=== PATIENT | male | born 1970 | race Caucasian/White ===

== ENCOUNTER 2017-09-23 11:58 | Emergency (ER) | payer SELFPAY ==
--- NOTE | 2017-09-23 11:58 | DT_ITS ---
This patient was seen during an EMR downtime September 17, 2017 - September 24, 2017. This patient may have a combination of paper and electronic documentation or all paper documentation. All documentation is viewable within the e-chart portion of [facility] for each patient visit.
--- NOTE | 2017-09-23 12:55 | CT_ITS ---
STUDY: CT CERVICAL SPINE WITHOUT CONTRAST REASON FOR EXAM: Male, 47 years old. Trauma and neck pain RADIATION DOSAGE (If Supplied By Facility): CTDIvol = ( 28.79 ) mGy, DLP = ( 627.32 ) mGycm TECHNIQUE: High resolution transaxial imaging was performed without contrast material. Sagittal and coronal images were reconstructed. Individualized dose optimization techniques were used for this CT. COMPARISON: None FINDINGS: Normal craniovertebral junction. Normal anterior atlantoaxial articulation. Normal odontoid process. There is straightening of the normal cervical lordosis. No acute fracture or listhesis. Moderate multilevel degenerative disc disease without critical central canal stenosis. Mild degenerative retrolisthesis of C3 relation to C2. Multilevel uncovertebral hypertrophy and neuroforaminal narrowing. Normal visualized soft tissue structures. Fibronodular thickening in the lung apices CT/Spine Cervical without Contras IMPRESSION: Multilevel degenerative changes, as described above. Electronically Signed: Yovani Gauthier DO at 13:51 EDT Tel , Service support ,
--- NOTE | 2017-09-23 12:55 | CT_ITS ---
STUDY: CT CHEST WITHOUT CONTRAST REASON FOR EXAM: Male, 47 years old. Trauma with chest injury RADIATION DOSAGE (If Supplied By Facility): CTDIvol = ( 18.08 ) mGy, DLP = ( 636.92 ) mGycm TECHNIQUE: Transaxial imaging was performed without the administration of intravenous contrast material. Individualized dose optimization techniques were used for this CT. COMPARISON: None. FINDINGS: Lungs are mildly hyperinflated with flattened hemidiaphragms compatible COPD. Mild bilateral fibronodular thickening in the lung apices. No definite pneumothorax. There is no demonstrated pleural abnormality. Normal heart and pericardium. Normal mediastinum. Normal hilar regions. Normal unenhanced pulmonary arteries. Normal aorta arch and descending thoracic aorta. Normal osseous structures.No evidence of rib fracture or thoracic spine fracture. There is no demonstrated abnormality of the visualized upper abdomen. CT/Chest without Contrast IMPRESSION: No acute traumatic findings. No evidence of rib fracture. No pneumothorax. Electronically Signed: Yovani Gauthier DO at 13:53 EDT Tel , Service support ,
--- NOTE | 2017-09-23 12:55 | CT_ITS ---
STUDY: CT BRAIN WITHOUT CONTRAST REASON FOR EXAM: Male, 47 years old. Trauma. Confusion. RADIATION DOSAGE (If Supplied By Facility): CTDIvol = ( 44.99 ) mGy, DLP = ( 812.98 ) mGycm TECHNIQUE: Transaxial CT imaging of the brain was performed without administration of intravenous contrast material. Individualized dose optimization techniques were used for this CT. COMPARISON: None. FINDINGS: Normal soft tissue structures. Normal calvarium. Normal size ventricles and extra-axial spaces for the patient's age. Normal white matter tracts of the cerebral hemispheres. Normal basal ganglia and thalami. Normal brainstem. Normal cerebellum. There is no intracranial hemorrhage. There are no findings of an acute ischemic infarction. Normal visualized paranasal sinuses. CT/Brain/Head without Contrast IMPRESSION: Normal unenhanced CT scan of the brain. Electronically Signed: Yovani Gauthier DO at 13:49 EDT Tel , Service support ,
--- NOTE | 2017-09-23 13:15 | EKG12_ITS ---
Test Reason : NEURO Blood Pressure : / mmHG Vent. Rate : 081 BPM Atrial Rate : 081 BPM P-R Int : 152 ms QRS Dur : 106 ms QT Int : 412 ms P-R-T Axes : 070 091 069 degrees QTc Int : 478 ms Normal sinus rhythm Normal ECG Confirmed by GIOVANNY REDMAN, JACQUES ([id number]), movie editor MIGUE SCOTT ([id number]) on 09/26/2017 5:48:30 PM Referred By: Shahid Hernandez Confirmed By:JACQUES BALTAZAR MD
[2017-09-25 07:39] LABS: ALB/GLOB Ratio 1.6 RATIO (0.9-2.4); AST(SGOT) 23 U/L (15-37); Alanine Aminotransfer ALT/SGPT 20 U/L (16-61); Albumin, Serum 4.4 g/dL (3.2-5.0); Alkaline Phosphatase 122 U/L (45-117); Anion Gap 12 (5-15); BUN 19 mg/dL (7-18); Calcium,Total 8.7 mg/dL (8.5-10.1); Chloride 105 mmol/L (98-107); Creatinine, Serum 1.12 mg/dL (0.70-1.30); EST Glomerular Filtration Rate 75 mL/min (>60); Est Glom Filt Rate - Afr Amer 91 mL/min (>60); Globulin 2.8 g/dL (2.2-4.2); Glucose 120 mg/dL (74-106); Lipase 102 U/L (73-393); Potassium 3.2 mmol/L (3.5-5.1); Protein, Total 7.2 g/dL (6.4-8.2); Sodium Level 142 mmol/L (136-145)
[2017-09-25 08:15] LABS: Amphetamine Urine VISTA POSITIVE (<1000 ng/mL); Barbiturate Urine VISTA NEGATIVE (< 200 ng/mL); Benzodiazepine Urine VISTA NEGATIVE (< 200 ng/mL); Cocaine Urine VISTA NEGATIVE (< 300 ng/mL); Ecstacy Urine VISTA POSITIVE (< 500 ng/mL); Methadone Urine VISTA NEGATIVE (< 300 ng/mL); PCP Urine VISTA NEGATIVE (< 25 ng/mL); THC Urine VISTA POSITIVE (< 50 ng/mL); Vista UDS pH Range 5
[2017-09-25 08:16] LABS: Alcohol, Blood (Medical)-Serum < 3.0 mg/dL
[2017-09-25 11:30] LABS: Red Blood Count 5.15 M/mm3 (4.6-6.2); White Blood Count 8.2 K/mm3 (4.4-11.0)
[2017-09-25 11:31] LABS: Absolute Neutrophil Count 2.8 X10^3/uL (2.0-7.7); Basophil# 0.03 X10^3/uL; Basophil% 0.4 % (0-1); Eosinophil# 0.14 X10^3/uL; Eosinophils% 1.7 % (0-5); Hematocrit 46.7 % (40-54); Hemoglobin 15.9 g/dl (13.0-16.5); Lymphocyte % 58.3 % (19-41); Mean Corpuscular Hgb 30.9 pg (27.0-32.0); Mean Corpuscular Volume 90.7 fL (80-94); Mean Platelet Vol. 11.8 fl (6.2-12.0); Monocyte% 4.9 % (0-10); Neutrophil # 2.84 X10^3/uL (2.7-7.7); Neutrophil % 34.5 % (47-70); POSITIVE COUNT NO; POSITIVE DIFFERENTIAL NO; POSITIVE MORPHOLOGY NO; Platelet Count 326 K/mm3 (150-450); RBC Distribution Width CV 12.9 % (11.6-14.6)
[2017-09-25 12:14] LABS: Mucous, Urine 0 SEEN /hpf (<or=2+); Red Blood Cells-Urine 0 SEEN /hpf (0-5); White Blood Cells 0 SEEN /hpf (0-5)
[2017-09-25 13:17] LABS: Color, Urine Yellow (Yellow)
[2017-09-25 13:18] LABS: Bacteria RARE /hpf (None Seen); Glucose, Dipstick NEGATIVE (Normal); Hyaline Cast 0-5 SEEN /lpf (0-5); Ketone-Dipstick 15 mg/dl (Negative); Leukocyte Esterase-Dipstick 25 /ul (Negative); Nitrite-Dipstick Negative (Negative); Occult Blood-Urine 10 /ul (Negative); Protein-Dipstick 30 mg/dl (Negative); Squamous Epithelial Cells - UA 0-5 SEEN /hpf (0-5); Urine Bilirubin Dipstick Negative (Negative); Urine Clarity Clear (Clear); Urine Urobilinogen Normal (Normal)
== END 2017-09-23 16:45 | disposition home or self-care (01) ==
LOC: ED 09-24 07:14
PROVIDERS: Emergency Provider Emergency Medicine
DX: R41.82 Altered mental status, unspecified (principal); T50.905A Adverse effect of unspecified drugs, medicaments and biological substances, initial encounter; T78.40XA Allergy, unspecified, initial encounter; Y92.481 Parking lot as the place of occurrence of the external cause; S16.1XXA Strain of muscle, fascia and tendon at neck level, initial encounter; W17.89XA Other fall from one level to another, initial encounter; Y93.89 Activity, other specified; Y99.9 Unspecified external cause status; F17.200 Nicotine dependence, unspecified, uncomplicated
CPT/HCPCS: 36415; 70450; 71250; 72125; 80053; 80307; 80320; 81001; 83690; 84484; 85025; 93005; 96374; 99285; J7030; A4216; G0480

== ENCOUNTER 2018-08-13 05:01 | Observation (INO) | payer MEDICAID, SELFPAY ==
[2018-08-13] VITALS (18 sets, daily range): BP systolic 111–136; BP diastolic 58–89; PULSE 65–86; RESP 14–24; TEMP 36.4–37.1; O2SAT 93–99; BMI 25.8; BMI 23.7
--- NOTE | 2018-08-13 05:10 | RAD_ITS ---
HISTORY: left sided chest pain EXAM:XR Chest 1 View portable COMPARISON: None FINDINGS: EKG leads and external pacer paddles in place. Normal heart size. No vascular congestion, pleural effusion, or acute pulmonary infiltration. No pneumothorax. The bony thorax appears intact. RAD/Chest 1 View (Portable) IMPRESSION: No acute cardiopulmonary disease. at 4769 Reported and signed by: Stuart Hamilton MD Electronically Signed: Stuart Hamilton, at 5:34 EDT Tel , Service support ,
--- NOTE | 2018-08-13 05:10 | ED.RN ---
DR. ANDERSON CANCELLED STEMI.
--- NOTE | 2018-08-13 05:12 | EKG12_ITS ---
Test Reason : CP Blood Pressure : / mmHG Vent. Rate : 064 BPM Atrial Rate : 064 BPM P-R Int : 160 ms QRS Dur : 086 ms QT Int : 382 ms P-R-T Axes : 072 080 072 degrees QTc Int : 394 ms Normal sinus rhythm Septal infarct , age undetermined Abnormal ECG Confirmed by COLBY REDMAN, JADE ([id number]), video effects editor MORRIS THAKKAR ([id number]) on 08/15/2018 9:26:10 AM Referred By: MONICA Confirmed By:JADE BOWMAN MD
[2018-08-13] MEDS: Morphine 4 MG/ML Syringe IV ×2 (05:20→06:21)
[2018-08-13] MEDS: Ondansetron 4 MG/2 ML Vial IV (05:20)
[2018-08-13 05:28] LABS: Absolute Lymphocyte Count 2.61 X10^3/ul (0.83-4.51); Absolute Neutrophil Count 5.8 X10^3/uL (2.0-7.7); Basophil# 0.02 X10^3/uL; Basophil% 0.2 % (0-1); Eosinophil# 0.22 X10^3/uL; Eosinophils% 2.4 % (0-5); Hematocrit 40.8 % (40-54); Hemoglobin 13.5 g/dl (13.0-16.5); Lymphocyte # 2.61 X10^3/ul (4.0); Lymphocyte % 28.1 % (19-41); Mean Corp Hgb Conc 33.1 g/gl (32-36); Mean Corpuscular Hgb 30.5 pg (27.0-32.0); Mean Corpuscular Volume 92.1 fL (80-94); Mean Platelet Vol. 11.2 fl (6.2-12.0); Monocyte# 0.59 X10^3/uL; Monocyte% 6.4 % (0-10); Neutrophil # 5.83 X10^3/uL (2.7-7.7); Neutrophil % 62.8 % (47-70); Platelet Count 244 K/mm3 (150-450); RBC Distribution Width CV 12.7 % (11.6-14.6); RBC Distribution Width SD 41.6 fl (35.1-43.9); Red Blood Count 4.43 M/mm3 (4.6-6.2); White Blood Count 9.3 K/mm3 (4.4-11.0)
[2018-08-13 05:29] LABS: POSITIVE COUNT NO; POSITIVE DIFFERENTIAL NO; POSITIVE MORPHOLOGY NO
--- NOTE | 2018-08-13 05:30 | CT_ITS ---
HISTORY: left sided chest pain, abdomen pain EXAMINATION: CT Abdomen And Pelvis W/O Contrast TECHNIQUE: Helically acquired images were obtained of the abdomen and pelvis without oral or IV contrast as per renal stone protocol. A radiation dose optimization technique was used for this scan. IV Contrast dosage and agent: None. Oral contrast: None. COMPARISON: CT chest 09/23/2017 FINDINGS: Lower thorax: Bibasilar dependent atelectasis, worse on the right. No pleural effusion. Negative gallbladder and biliary system. Limited non-infusion exam. Peripheral right hepatic lobe oval hypodense lesion which is circumscribed and measures 1.6 x 1.2 cm. Scattered additional subcentimeter hypodense lesions involving the central liver and left hepatic lobe. The hepatic lesions appear stable compared to previous CT in keeping with cysts. The spleen is normal in size and shows numerous small calcified granulomas. Normal pancreas. Both kidneys are normal in position. No renal or ureteral calculi and no hydronephrosis or hydroureter. Adrenal glands are not enlarged. Abdominal aorta is normal in caliber. No ascites or retroperitoneal lymph enlargement. GI tract: No obstruction. Normal appendix. Pelvis: No free fluid or lymph node enlargement. Normal urinary bladder. Bones: No acute osseous abnormality. CT/Abdomen/Pelvis without Cont IMPRESSION: 1. No acute abdominal disease identified. 2. Scattered small hepatic lesions, unchanged, compatible with cysts. 3. Old granulomatous disease. Individualized dose optimization techniques were used for this CT. at 0602 Reported and signed by: Stuart Hamilton MD Electronically Signed: Stuart Hamilton, at 6:01 EDT Tel , Service support ,
[2018-08-13 05:47] LABS: AST(SGOT) 19 U/L (15-37); Alanine Aminotransfer ALT/SGPT 23 U/L (16-61); Albumin, Serum 3.6 g/dL (3.2-5.0); Alkaline Phosphatase 128 U/L (45-117); Anion Gap 6 (5-15); BUN 14 mg/dL (7-18); BUN/Creat Ratio 14.4 RATIO (10-20); Calcium,Total 8.4 mg/dL (8.5-10.1); Chloride 111 mmol/L (98-107); Creatinine, Serum 0.98 mg/dL (0.70-1.30); EST Glomerular Filtration Rate 88 mL/min (>60); Est Glom Filt Rate - Afr Amer 106 mL/min (>60); Estimated Creatinine Clearance 108.34 ml/min; Globulin 2.9 g/dL (2.2-4.2); Glucose 106 mg/dL (74-106); Lipase 98 U/L (73-393); Potassium 4.4 mmol/L (3.5-5.1); Protein, Total 6.5 g/dL (6.4-8.2); Sodium Level 143 mmol/L (136-145)
--- NOTE | 2018-08-13 06:00 | EKG12_ITS ---
Test Reason : REPEAT CP Blood Pressure : / mmHG Vent. Rate : 069 BPM Atrial Rate : 069 BPM P-R Int : 158 ms QRS Dur : 088 ms QT Int : 386 ms P-R-T Axes : 071 078 065 degrees QTc Int : 413 ms Normal sinus rhythm Septal infarct , age undetermined Abnormal ECG Confirmed by COLBY REDMAN, JADE ([id number]), content editor MORRIS THAKKAR ([id number]) on 08/15/2018 9:25:55 AM Referred By: MONICA Confirmed By:JADE BOWMAN MD
[2018-08-13 06:21] LABS: D-Dimer Quantitative (DVT/PE) < 0.27 FEU/ug/m (0.27-0.49)
[2018-08-13 06:33] LABS: Lactic Acid 1.1 mmol/L (0.4-2.0)
--- NOTE | 2018-08-13 06:43 | ED.VISSUMM ---
- ER Visit Summary Date of Service: 08/13/18 Chief Complaint: Chest pain History of Present Illness: The patient is a 48 M who presents with severe chest pain that began 40 minutes ago. It is constant. It on the left lower chest. Sharp. It is worse with inspiration. He reports some mild nausea. His was driving him to the hospital and his pain began to worsen and he also developed shortness of breath. He states he became diaphoretic. They pulled off to the side of the road and called EMS. Initial EMS EKGs did have artifact but were concerning for inferior ST elevation and prehospital STEMI was activated. Physical Examination: Afebrile vitals actually within normal limits Patient appears to be in pain Moist mucous membranes Heart regular rate and rhythm Lungs are clear with equal breath sounds although he is tachypneic Abdomen soft nondistended he is tender in the left upper quadrant has some voluntary guarding 2+ symmetric radial pulses Alert Test Results: Initial EKG on arrival here is not consistent with STEMI, EKG shows sinus rhythm at a rate of 84. Repeat EKG shows subtle ST elevation in inferior leads but without any changes. CBC BMP hepatic function lipase all unremarkable. Lactic acid within normal limits. D-dimer negative. Troponin negative. Chest x-ray shows no acute disease. CT of the abdomen pelvis shows no acute disease. Emergency Department Course and Treatment: Prehospital EKGs were initially concerning for inferior STEMI. However the most recent EKG which they obtained shortly before arrival here did not show elevation of ST segments and initial EKG here did not show elevation of ST segments. STEMI team was canceled. On chest x-ray on my review I was concerned for possible free air under the left diaphragm. Given the patient also had abdominal tenderness he was sent for a CT of the abdomen and pelvis. Chest x-ray was ultimately read as normal by radiology and CT the abdomen shows no acute disease. Repeat EKG showed possibly some subtle ST elevation or OK depression in the inferior leads but I see no reciprocal changes. I did send this to cardiology who agrees does not meet STEMI criteria. Patient was given multiple doses of IV morphine and is more comfortable on reevaluation. Patient will be discussed with the hospitalist for admission. Treatment Plan: [] Disposition: Admit Impression: Chest pain This note was generated with [employer] dictation software. It may contain incorrect words, spelling, and punctuation that were not noted in review of the chart prior to signing ED Disposition - Plan for ED Patient: Referrals: Care Physician,No Primary [Primary Care Provider] -
--- NOTE | 2018-08-13 07:03 | NURSING ---
HOSPITALIST FOR DR ANDERSON
--- NOTE | 2018-08-13 07:12 | NURSING ---
DR LORD IN WITH PATIENT
--- NOTE | 2018-08-13 07:12 | NURSING ---
PCU OBS JULIANN LORD
--- NOTE | 2018-08-13 07:36 | PCM.HP.STD ---
Problem List (1) Chest pain Status: Acute Qualifiers: Chest pain type: chest pain on breathing Qualified Code(s): R07.1 - Chest pain on breathing; R07.81 - Pleurodynia History of Present Illness Date of Admission: 08/13/18 Chief Complaint: chest pain The patient is a 48 year old M who presents with acute onset of chest pain. Pain woke him up from sleep. Pain was left-sided. Concern was for recurrent pneumothorax as patient has had pneumothorax before. Presented to the emergency room and chest x-ray showed no pneumothorax. Patient also underwent abdominal CT because there was concern for possible free air in the diaphragm and that was unremarkable. Lab work was unremarkable. EKG, however showed ST elevation in inferior leads and subsequent EKGs were unremarkable. Patient still having chest pain that he states is worse with deep respirations. Patient denies any history of illicit drug use though drug screen back in September was positive for numerous substances. [] Past Medical History Medical History: Medical History (Last Updated 08/13/18 @ 07:38 by Jerry Santana DO) Spontaneous pneumothorax J93.83 Allergies Penicillins Allergy (Verified 08/13/18 05:13) Unknown Home Medications: Ambulatory Orders Medication Instructions Recorded NK 08/13/18 Surgical History: Surgical History (Last Updated 08/13/18 @ 07:38 by Jerry Santana DO) H/O chest tube placement Z98.890 Smoking Status: Heavy Smoker (>10/day) Tobacco Use: Cigarettes Drugs: None - *Family History Maternal History Items: - - no CAD Review of Systems Constitutional: Denies: Anorexia, Chills, Fever Eyes: Denies: Blurred vision, Double vision HEENT: Denies: Head Aches, Sinus Congestion, Sinus Drainage Cardiovascular: Reports: Chest Pain. Denies: Edema Respiratory: Reports: Shortness of Breath. Denies: Cough, Sputum production Gastrointestinal: Reports: Nausea. Denies: Abdominal Pain, Vomiting Genitourinary: Denies: Dysuria Musculoskeletal: Denies: Joint Pain, Joint Tenderness Skin: Denies: Rash, Wounds Neurological: Denies: Numbness, Tingling, Focal weakness Psychiatric: Denies: Anxiety, Depression Endocrine: Denies: Change in Body Habitus, Heat/ Cold Intolerance Hematologic/ Lymphatic: Denies: Easy Bruising, Easy Bleeding, Hx of blood clot Comment: left arm paresthesia. A 10 point review of systems were negative except as mentioned in the history of present illness and the other review of systems. VTE Information - Inpt Only VTE Present on Admission: No VTE Mechan Device Prophylaxis: None Reason prophylaxis not ordered:: Procedure Not Indicated Patient Problems: Active and Suspected Problems (Last Updated 08/13/18 @ 07:38 by Jerry Santana DO) Chest pain (Acute) - Physical Exam General: Alert, - - Uncomfortable. No eye contact. Flat affect. Afebrile. Appears older than stated age. HEENT: Atraumatic, Normocephalic Oral: Moist Mucosa, No Gingival or Mucosal Lesions/ Ulcerations Neck: No Nodes, Thyroid Normal Size and Texture Lungs: Clear to auscultation, Normal air movement, No rhonchi, No wheeze Cardiovascular: Regular rate, Regular Rhythm, Normal S1, Normal S2, No murmurs Abdomen: Bowel Sounds Present, Soft, Non Tender, Non-Distended, No Hepato-splenomegaly Extremities: No edema, No Calf Tenderness Skin: No rashes, No breakdown Musculoskeletal: - - Reducible left-sided anterior chest wall tenderness Lymphatic: No Cervical, Supraclavicular, or Inguinal Adenopathy, Cervical Adenopathy Psych/Mental Status: Appropriate, Anxious Vital Signs Temp Pulse Resp BP Pulse Ox 36.4 C L 65 24 H 128/89 H 98 08/13/18 05:05 08/13/18 06:26 08/13/18 06:26 08/13/18 06:26 08/13/18 06:26 Oxygen Flow Rate (L/min) 2 Oxygen Delivery Method Nasal Cannula Weight: 91.4 kg Body Mass Index (BMI) 25.8 Laboratory Tests Past 24 Hrs 08/13/18 08/13/18 08/13/18 05:19 05:19 05:19 WBC 9.3 RBC 4.43 L Hgb 13.5 Hct 40.8 MCV 92.1 MCH 30.5 MCHC 33.1 RDW 12.7 RDW Differential 41.6 Plt Count 244 MPV 11.2 Immature Gran % (Auto) 0.100 Neut % (Auto) 62.8 Lymph % (Auto) 28.1 [place] % (Auto) 6.4 Eos % (Auto) 2.4 Baso % (Auto) 0.2 Absolute Neuts (auto) 5.8 Absolute Lymphs (auto) 2.61 Total Counted Not Reportable D-Dimer Quant (PE/DVT) < 0.27 L Sodium 143 Potassium 4.4 Chloride 111 H Carbon Dioxide 26.0 Anion Gap 6 BUN 14 Creatinine 0.98 Estim Creat Clear Calc 108.34 Est GFR (MDRD) Af Amer 106 Est GFR (MDRD) Non-Af 88 BUN/Creatinine Ratio 14.4 Glucose 106 Lactic Acid Calcium 8.4 L Total Bilirubin 0.30 Direct Bilirubin 0.10 AST 19 ALT 23 Alkaline Phosphatase 128 H Troponin I < 0.015 Total Protein 6.5 Albumin 3.6 Globulin 2.9 Lipase 98 08/13/18 06:05 WBC RBC Hgb Hct MCV MCH MCHC RDW RDW Differential Plt Count MPV Immature Gran % (Auto) Neut % (Auto) Lymph % (Auto) [place] % (Auto) Eos % (Auto) Baso % (Auto) Absolute Neuts (auto) Absolute Lymphs (auto) Total Counted D-Dimer Quant (PE/DVT) Sodium Potassium Chloride Carbon Dioxide Anion Gap BUN Creatinine Estim Creat Clear Calc Est GFR (MDRD) Af Amer Est GFR (MDRD) Non-Af BUN/Creatinine Ratio Glucose Lactic Acid 1.1 Calcium Total Bilirubin Direct Bilirubin AST ALT Alkaline Phosphatase Troponin I Total Protein Albumin Globulin Lipase Chest x-ray reviewed and showed no acute process. Poor respiratory effort. Possible COPD type changes. EKGs, intake showed inferior ST elevations, however subsequent EKGs, showed resolution of those changes. Assessment/Plan All Active Problems (Last Updated 08/13/18 @ 07:38 by Jerry Santana DO) Chest pain (Acute) 1. Chest pain Acute onset and still ongoing Cardiology was notified by the emergency room and said they wanted to be consulted and will continue that for further cardiac evaluation as there was no EKG changes initially present but subsequently resolved We will check an echocardiogram but I will see him check a CT of the chest. Chest x-ray did not show any obvious pneumothorax but with chest CT to see if there is any evidence of anything like pneumonia that may be causing any kind of pleuritic changes and therefore possibly contributing to his chest pain. Cycle troponins Patient denies drug use though previous drug screen was positive for substances previously 2. VTE prophylaxis: Not indicated. Patient observation status and activity be ad walter. Therefore low risk. I discussed with the patient's and daughter with patient's permission at bedside. Code Visit OBSV E&M: 28508 Initial observation care L2
--- NOTE | 2018-08-13 07:40 | HP.PCM_ITS ---
Problem List (1) Chest pain Status: Acute Qualifiers: Chest pain type: chest pain on breathing Qualified Code(s): R07.1 - Chest pain on breathing; R07.81 - Pleurodynia History of Present Illness Date of Admission: 08/13/18 Chief Complaint: chest pain The patient is a 48 year old M who presents with acute onset of chest pain. Pain woke him up from sleep. Pain was left-sided. Concern was for recurrent pneumothorax as patient has had pneumothorax before. Presented to the emergency room and chest x-ray showed no pneumothorax. Patient also underwent abdominal CT because there was concern for possible free air in the diaphragm and that was unremarkable. Lab work was unremarkable. EKG, however showed ST elevation in inferior leads and subsequent EKGs were unremarkable. Patient still having chest pain that he states is worse with deep respirations. Patient denies any history of illicit drug use though drug screen back in September was positive for numerous substances. [] Past Medical History Medical History: Medical History (Last Updated 08/13/18 @ 07:38 by Jerry Santana DO) Spontaneous pneumothorax J93.83 Allergies Penicillins Allergy (Verified 08/13/18 05:13) Unknown Home Medications: Ambulatory Orders Medication Instructions Recorded NK 08/13/18 Surgical History: Surgical History (Last Updated 08/13/18 @ 07:38 by Jerry Santana DO) H/O chest tube placement Z98.890 Smoking Status: Heavy Smoker (>10/day) Tobacco Use: Cigarettes Drugs: None - *Family History Maternal History Items: - - no CAD Review of Systems Constitutional: Denies: Anorexia, Chills, Fever Eyes: Denies: Blurred vision, Double vision HEENT: Denies: Head Aches, Sinus Congestion, Sinus Drainage Cardiovascular: Reports: Chest Pain. Denies: Edema Respiratory: Reports: Shortness of Breath. Denies: Cough, Sputum production Gastrointestinal: Reports: Nausea. Denies: Abdominal Pain, Vomiting Genitourinary: Denies: Dysuria Musculoskeletal: Denies: Joint Pain, Joint Tenderness Skin: Denies: Rash, Wounds Neurological: Denies: Numbness, Tingling, Focal weakness Psychiatric: Denies: Anxiety, Depression Endocrine: Denies: Change in Body Habitus, Heat/ Cold Intolerance Hematologic/ Lymphatic: Denies: Easy Bruising, Easy Bleeding, Hx of blood clot Comment: left arm paresthesia. A 10 point review of systems were negative except as mentioned in the history of present illness and the other review of systems. VTE Information - Inpt Only VTE Present on Admission: No VTE Mechan Device Prophylaxis: None Reason prophylaxis not ordered:: Procedure Not Indicated Patient Problems: Active and Suspected Problems (Last Updated 08/13/18 @ 07:38 by Jerry Santana DO) Chest pain (Acute) - Physical Exam General: Alert, - - Uncomfortable. No eye contact. Flat affect. Afebrile. Appears older than stated age. HEENT: Atraumatic, Normocephalic Oral: Moist Mucosa, No Gingival or Mucosal Lesions/ Ulcerations Neck: No Nodes, Thyroid Normal Size and Texture Lungs: Clear to auscultation, Normal air movement, No rhonchi, No wheeze Cardiovascular: Regular rate, Regular Rhythm, Normal S1, Normal S2, No murmurs Abdomen: Bowel Sounds Present, Soft, Non Tender, Non-Distended, No Hepato- splenomegaly Extremities: No edema, No Calf Tenderness Skin: No rashes, No breakdown Musculoskeletal: - - Reducible left-sided anterior chest wall tenderness Lymphatic: No Cervical, Supraclavicular, or Inguinal Adenopathy, Cervical Adenopathy Psych/Mental Status: Appropriate, Anxious Vital Signs Temp Pulse Resp BP Pulse Ox 36.4 C L 65 24 H 128/89 H 98 08/13/18 05:05 08/13/18 06:26 08/13/18 06:26 08/13/18 06:26 08/13/18 06:26 Oxygen Flow Rate (L/min) 2 Oxygen Delivery Method Nasal Cannula Weight: 91.4 kg Body Mass Index (BMI) 25.8 Laboratory Tests Past 24 Hrs 08/13/18 08/13/18 08/13/18 05:19 05:19 05:19 WBC 9.3 RBC 4.43 L Hgb 13.5 Hct 40.8 MCV 92.1 MCH 30.5 MCHC 33.1 RDW 12.7 RDW Differential 41.6 Plt Count 244 MPV 11.2 Immature Gran % (Auto) 0.100 Neut % (Auto) 62.8 Lymph % (Auto) 28.1 [place] % (Auto) 6.4 Eos % (Auto) 2.4 Baso % (Auto) 0.2 Absolute Neuts (auto) 5.8 Absolute Lymphs (auto) 2.61 Total Counted Not Reportable D-Dimer Quant (PE/DVT) < 0.27 L Sodium 143 Potassium 4.4 Chloride 111 H Carbon Dioxide 26.0 Anion Gap 6 BUN 14 Creatinine 0.98 Estim Creat Clear Calc 108.34 Est GFR (MDRD) Af Amer 106 Est GFR (MDRD) Non-Af 88 BUN/Creatinine Ratio 14.4 Glucose 106 Lactic Acid Calcium 8.4 L Total Bilirubin 0.30 Direct Bilirubin 0.10 AST 19 ALT 23 Alkaline Phosphatase 128 H Troponin I < 0.015 Total Protein 6.5 Albumin 3.6 Globulin 2.9 Lipase 98 08/13/18 06:05 WBC RBC Hgb Hct MCV MCH MCHC RDW RDW Differential Plt Count MPV Immature Gran % (Auto) Neut % (Auto) Lymph % (Auto) [place] % (Auto) Eos % (Auto) Baso % (Auto) Absolute Neuts (auto) Absolute Lymphs (auto) Total Counted D-Dimer Quant (PE/DVT) Sodium Potassium Chloride Carbon Dioxide Anion Gap BUN Creatinine Estim Creat Clear Calc Est GFR (MDRD) Af Amer Est GFR (MDRD) Non-Af BUN/Creatinine Ratio Glucose Lactic Acid 1.1 Calcium Total Bilirubin Direct Bilirubin AST ALT Alkaline Phosphatase Troponin I Total Protein Albumin Globulin Lipase Chest x-ray reviewed and showed no acute process. Poor respiratory effort. Possible COPD type changes. EKGs, intake showed inferior ST elevations, however subsequent EKGs, showed resolution of those changes. Assessment/Plan All Active Problems (Last Updated 08/13/18 @ 07:38 by Jerry Santana DO) Chest pain (Acute) 1. Chest pain * Acute onset and still ongoing * Cardiology was notified by the emergency room and said they wanted to be consulted and will continue that for further cardiac evaluation as there was no EKG changes initially present but subsequently resolved * We will check an echocardiogram but I will see him check a CT of the chest. Chest x-ray did not show any obvious pneumothorax but with chest CT to see if there is any evidence of anything like pneumonia that may be causing any kind of pleuritic changes and therefore possibly contributing to his chest pain. * Cycle troponins * Patient denies drug use though previous drug screen was positive for substances previously 2. VTE prophylaxis: Not indicated. Patient observation status and activity be ad walter. Therefore low risk. I discussed with the patient's and daughter with patient's permission at bedside. Code Visit OBSV E&M: 95346 Initial observation care L2
--- NOTE | 2018-08-13 08:10 | ECHOD_ITS ---
Reason For Study: CP Procedure This was a 2D Doppler, Color Flow transthoracic echocardiogram. Exam performed portable in patient room. Left Ventricle Normal LV size. Left ventricular systolic function is normal. The estimated ejection fraction is 65 %. No evidence for diastolic dysfunction. No regional wall motion abnormalities noted. Right Ventricle Normal RV size. Normal systolic function. Atria Normal left atrium. Normal right atrium. Probable chiari network. No doppler evidence for ASD. Mitral Valve There is no mitral annular calcification. Normal mitral valve. Trivial mitral valve insufficiency. Tricuspid Valve Normal tricuspid valve. Trivial tricuspid valve insufficiency. Aortic Valve Trisinus/trileaflet aortic valve. Normal aortic valve. Pulmonic Valve The pulmonic valve is not well visualized. Great Vessels The aortic root is not well visualized. Pericardium/Pleural No pericardial effusion. MMode/2D Measurements & Calculations LVIDd: 4.8 cm IVSd: 1.1 cm LA dimension: 3.3 cm LVIDs: 2.5 cm LVPWd: 1.0 cm RVDd: 3.3 cm FS: 48.1 % LAV(MOD-bp): 46.7 ml LA A4 area: 16.3 cm2 RA A4 area: 15.4 cm2 LAV(MOD-bp) Indexed: 22.5 ml/m2 LAV(MOD-sp2): 50.0 ml LAV(MOD-sp4): 39.6 ml Time Measurements MV dec time: 0.21 sec Doppler Measurements & Calculations MV E max eliezer: 94.0 cm/sec Lat Peak E' Eliezer: 14.5 cm/sec Med Peak E' Eliezer: 14.7 cm/sec MV A max eliezer: 66.8 cm/sec E/E' lat: 6.5 E/E' med: 6.4 MV E/A: 1.4 MV V2 max: 92.5 cm/sec MV P1/2t max eliezer: 92.5 cm/sec Ao V2 max: 149.3 cm/sec MV max P.4 mmHg MV P1/2t: 85.3 msec Ao max P.9 mmHg MV V2 mean: 50.7 cm/sec MV dec slope: 317.5 cm/sec2 MV mean P.2 mmHg MVA(P1/2t): 2.6 cm2 MV V2 VTI: 28.0 cm LV V1 max: 124.5 cm/sec PA V2 max: 109.8 cm/sec LV V1 max P.2 mmHg Interpretation Summary Left ventricular systolic function is normal. The estimated ejection fraction is 65 %. Probable chiari network. Trivial mitral valve insufficiency. Trivial tricuspid valve insufficiency. No evidence for diastolic dysfunction. Ordering Physician: Jerry Santana Performed By: Bruce Mathew RCS
--- NOTE | 2018-08-13 08:10 | CT_ITS ---
STUDY: CT CHEST WITH CONTRAST REASON FOR EXAM: Male, 48 years old. Left-sided chest pain. History of spontaneous pneumothorax. RADIATION DOSAGE (If Supplied By Facility): CTDIvol = ( 9.95 ) mGy, DLP = ( 354.54 ) mGycm TECHNIQUE: Transaxial imaging was performed following intravenous administration of 100 IV Isovue 300. Multiplanar coronal and sagittal images were reformatted. Individualized dose optimization techniques were used for this CT. COMPARISON: Comparison is made with prior study dated September 23, 2017. FINDINGS: Hyperinflation. Stable subpleural blebs in the lung apices bilaterally with the stable areas of increased soft tissue density suggestive of scarring. Mild increased markings at the lung bases suggestive of atelectasis superimposed on bibasilar scarring. Small left pleural effusion. Normal heart and pericardium. Normal mediastinum. Normal hilar regions. Normal enhanced pulmonary arteries. Normal aorta arch and descending thoracic aorta. There is demineralization of the thoracic spine. Calcified splenic granulomas. Stable 1 cm x 1.7 cm cyst in the lateral aspect of the right lobe of the liver. CT/Chest WITH Contrast IMPRESSION: Stable fibrotic changes at the lung apices with subpleural blebs. Findings suggestive of a bibasilar scarring with superimposed mild atelectasis. Small left pleural effusion. Electronically Signed: Denys Pitts, at 9:11 EDT , Service support ,
--- NOTE | 2018-08-13 08:29 | EKG12_ITS ---
Test Reason : CP ADMISSION Blood Pressure : / mmHG Vent. Rate : 073 BPM Atrial Rate : 073 BPM P-R Int : 164 ms QRS Dur : 092 ms QT Int : 374 ms P-R-T Axes : 062 075 058 degrees QTc Int : 412 ms Normal sinus rhythm Septal infarct , age undetermined Abnormal ECG When compared with ECG of 13-AUG-2018 06:06, MANUAL COMPARISON REQUIRED, DATA IS UNCONFIRMED Confirmed by JEAN CATALAN ([id number]), makeup editor MIGUE SCOTT ([id number]) on 08/19/2018 2:24:58 PM Referred By: MERRILL Confirmed By:ELKE CATALAN
[2018-08-13] MEDS: Aspirin 81 MG TAB.CHEW 324 MG PO (09:06)
--- NOTE | 2018-08-13 10:40 | CASEMGMT ---
Patient does not have a Healthcare POA or Healthcare LW. He is not interested in documents at this time. Mohini HILL MSW
[2018-08-13 13:44] LABS: Amphetamine Urine VISTA POSITIVE (<1000 ng/mL); Barbiturate Urine VISTA NEGATIVE (< 200 ng/mL); Benzodiazepine Urine VISTA NEGATIVE (< 200 ng/mL); Cocaine Urine VISTA NEGATIVE (< 300 ng/mL); Ecstacy Urine VISTA NEGATIVE (< 500 ng/mL); Methadone Urine VISTA NEGATIVE (< 300 ng/mL); Vista UDS pH Range 6
[2018-08-13 13:45] LABS: PCP Urine VISTA NEGATIVE (< 25 ng/mL); THC Urine VISTA POSITIVE (< 50 ng/mL)
[2018-08-13] MEDS: Acetaminophen 325 MG Tablet 650 MG PO (13:58)
--- NOTE | 2018-08-13 17:33 | PCM.CONS.C ---
Problem List (1) Chest pain Status: Acute Qualifiers: Chest pain type: chest pain on breathing Qualified Code(s): R07.1 - Chest pain on breathing; R07.81 - Pleurodynia (2) Abnormal ECG Status: Acute Reason for Consult Date of Consultation: 08/13/18 History of Present Illness: The patient is a 48 year old white male who claims to have no past cardiovascular history who presented for evaluation of chest pain and an abnormal ECG originally thought compatible with an acute ST segment elevation NM. The patient states he awoke with chest discomfort. This was a left-sided chest discomfort. He noted it was more problematic when attempting to take a deep breath. He felt nauseated and became diaphoretic. He states that his female significant other was bringing him to the hospital for further evaluation. She was concerned he was experiencing a heart attack. She stopped and summoned the EMS system. The EMS system arrived and performed an ECG. Based upon the initial ECG there were concerns that the patient was having an acute ST segment elevation NM which appeared potentially compatible in the anterolateral and inferior distribution. A subsequent ECG was performed which demonstrated changes of sinus rhythm and still demonstrating some element of ST segment change/elevation in the inferior distribution. The patient subsequently arrived at [facility]. The patient had a repeat ECG performed. At that time his repeat ECG demonstrated sinus rhythm with the appearance of a septal NM of indeterminate age in no acute ST segment changes. Thus the potential STEMI alert was discontinued. The patient was subsequent evaluated by the emerge department staff and placed in the hospital in the PCU for further evaluation and care. He noted over time his discomfort gradually improved. He had troponin I levels performed which were negative. He is also undergone further radiologic studies with a chest x-ray, chest CT scan, as well as abdominal/pelvic CT scans. This was based upon past medical histories including concerns of spontaneous pneumothorax. He was not found to have any obvious recurrent pneumothorax. A transthoracic echocardiogram was performed. His overall LV wall motion and systolic function appeared to be preserved. He was treated with medical management with morphine sulfate. He denies any history of orthopnea or PND. He states he does have chronic left shoulder/left upper extremity discomfort/paresthesias related to cervical disc disease. He states he underwent an exercise tolerance test at [facility] in the late summer/early fall 2017 in preparation for C-spine related surgery. He states this was negative as he did not require further cardiac evaluation or care. [] Past Medical History Allergies/Adverse Reactions: Allergies Penicillins Allergy (Verified 08/13/18 05:13) Unknown Home Medications: Ambulatory Orders Medication Instructions Recorded NK 08/13/18 - *Family History Maternal History Items: - - no CAD Lives: Spouse/ Significant Other Smoking Status: Heavy Smoker (>10/day) Tobacco Use: Cigarettes Drugs: None Review of Systems - Review of Systems General: Denies: Fever, Night Sweats, Fatigue Cardiovascular: Reports: Chest Discomfort, Chest Discomfort at Rest, Shortness of Breath, Shortness of Breath at Rest, - - Diaphoresis. Denies: Orthopnea, PND, Peripheral Edema, Palpitations, Lightheadedness, Dizziness, Near Syncope, Syncope Respiratory: Reports: Cough, Shortness of Breath Gastrointestinal: Reports: Nausea. Denies: Hematemesis, Hematochezia, Melena Genitourinary: Denies: Dysuria, Hematuria Skin: Denies: Rash Subjectve: This is a thin 48-year-old white male who appears to be resting comfortably at the moment in no acute distress. Objective: Vital Signs Temp Pulse Resp BP Pulse Ox 98.4 F 76 17 125/74 H 97 08/13/18 13:57 08/13/18 13:57 08/13/18 13:57 08/13/18 13:57 08/13/18 13:57 Oxygen Flow Rate (L/min) 2 Oxygen Delivery Method Room Air Weight: 184 lb 15.485 oz Body Mass Index (BMI) 23.7 Intake and Output for Last 24 Hours 08/11/18 08/12/18 08/13/18 23:59 23:59 23:59 Intake Total 100 / 100 Balance 100 / 100 General: Awake, Alert, Oriented x 3, Cooperative, No Acute Distress HEENT: Atraumatic, Normocephalic, PERRL, EOMI Oral: Moist Mucosa Neck: Supple, Good ROM, No JVD Lungs: Clear to auscultation Cardiovascular: Regular Rhythm, Normal S1, Normal S2 Vascular: No Carotid Bruits Abdomen: Bowel Sounds Present, Soft, Non Tender Extremities: No edema Psych/Mental Status: Appropriate 08/13/18 05:19: WBC 9.3, RBC 4.43 L, Hgb 13.5, Hct 40.8, MCV 92.1, MCH 30.5, MCHC 33.1, RDW 12.7, RDW Differential 41.6, Plt Count 244, MPV 11.2, Immature Gran % (Auto) 0.100, Neut % (Auto) 62.8, Lymph % (Auto) 28.1, [place] % (Auto) 6.4, Eos % (Auto) 2.4, Baso % (Auto) 0.2, Absolute Neuts (auto) 5.8, Total Counted Not Reportable 08/13/18 05:19: Sodium 143, Potassium 4.4, Chloride 111 H, Carbon Dioxide 26.0, Anion Gap 6, BUN 14, Creatinine 0.98, Est GFR (MDRD) Af Amer 106, Est GFR (MDRD) Non-Af 88, BUN/Creatinine Ratio 14.4, Glucose 106, Calcium 8.4 L, Total Bilirubin 0.30, Direct Bilirubin 0.10, Troponin I < 0.015 08/13/18 05:19: D-Dimer Quant (PE/DVT) < 0.27 L 08/13/18 06:05: Lactic Acid 1.1 08/13/18 08:36: Troponin I < 0.015 08/13/18 11:10: Troponin I < 0.015 Rhythm: Sinus rhythm EKG: Sinus rhythm; no acute ECG changes ECHO: Interpretation Summary Left ventricular systolic function is normal. The estimated ejection fraction is 65 %. Probable chiari network. Trivial mitral valve insufficiency. Trivial tricuspid valve insufficiency. No evidence for diastolic dysfunction. Stress Test: Unavailable for review CXR: Please see official report Chest CT Scan: Please see official report Assessment/Plan 1. Chest pain The patient experienced nonexertional/nocturnal chest pain. The etiology is unclear at this time. Initially there were concerns of an acute coronary syndrome with an acute ST segment elevation NM based upon his EMS ECG. However based upon repeat ECGs there appeared to be a question as to whether that was accurate versus artifact. His [facility] ECG demonstrated no acute changes. He is undergone evaluation with cardiac enzymes which have been negative. He is undergone evaluation with a transthoracic echocardiogram which did not appear to suggest any left ventricular regional wall motion abnormalities or diminished LV systolic function. He has had various radiologic studies to evaluate his pulmonary process for any evidence of recurrent spontaneous pneumothorax or great vessel disease. The studies have been negative for any acute related issues. It is unclear at this time where the patient's chest discomfort was related to a cardiovascular issue versus noncardiac issue. From a cardiac standpoint there may be some concerns based upon his discomfort and his initial EMS ECG as to whether or not another etiology could include an acute coronary condition which was aborted or a coronary artery vasospasm with subsequent spontaneous release and resolution. At the present time from a cardiac standpoint he is continuing to be monitored. He will have follow-up ECGs. However, based upon his clinical scenario it would not be unreasonable to consider further definitive evaluation of his coronary anatomy with a diagnostic cardiac catheterization. The procedure and risks were discussed with him. He was agreeable to this approach. In the interim he will be treated medically with aspirin and antiplatelet therapy as deemed appropriate. His lipid labs have been requested to assist with his cardiovascular risk factor evaluation. 2. Abnormal ECG Again there is concern of his initial ECG by the EMS and his subsequent ECG by EMS prior to arrival at [facility]. It is unclear as to whether this is artifact versus does represent an underlying acute coronary condition which was aborted or potentially coronary artery vasospasm. Thus at the present time he will continue to be monitored. He will be treated medically as noted above. He has been recommended for further evaluation with diagnostic cardiac catheterization. He was agreeable to this approach. Comment: The patient's case was discussed with the patient and his female significant other. This note was generated with [employer] dictation software. It may contain incorrect words, spelling, and punctuation that were not noted in checking the note before signing.
--- NOTE | 2018-08-13 17:37 | CON.PCM_ITS ---
Problem List (1) Chest pain Status: Acute Qualifiers: Chest pain type: chest pain on breathing Qualified Code(s): R07.1 - Chest pain on breathing; R07.81 - Pleurodynia (2) Abnormal ECG Status: Acute Reason for Consult Date of Consultation: 08/13/18 History of Present Illness: The patient is a 48 year old white male who claims to have no past cardiovas cular history who presented for evaluation of chest pain and an abnormal ECG originally thought compatible with an acute ST segment elevation TN. The patient states he awoke with chest discomfort. This was a left-sided chest discomfort. He noted it was more problematic when attempting to take a deep breath. He felt nauseated and became diaphoretic. He states that his female significant other was bringing him to the hospital for further evaluation. She was concerned he was experiencing a heart attack. She stopped and summoned the EMS system. The EMS system arrived and performed an ECG. Based upon the initial ECG there were concerns that the patient was having an acute ST segment elevation TN which appeared potentially compatible in the anterolateral and inferior distribution. A subsequent ECG was performed which demonstrated changes of sinus rhythm and still demonstrating some element of ST segment change/elevation in the inferior distribution. The patient subsequently arrived at [facility]. The patient had a repeat ECG performed. At that time his repeat ECG demonstrated sinus rhythm with the appearance of a septal TN of indeterminate age in no acute ST segment changes. Thus the potential STEMI alert was discontinued. The patient was subsequent evaluated by the emerge department staff and placed in the hospital in the PCU for further evaluation a nd care. He noted over time his discomfort gradually improved. He had troponin I levels performed which were negative. He is also undergone further radiologic studies with a chest x-ray, chest CT scan, as well as abdominal/pelvic CT scans. This was based upon past medical histories including concerns of spontaneous pneumothorax. He was not found to have any obvious recurrent pneumothorax. A transthoracic echocardiogram was performed. His overall LV wall motion and systolic function appeared to be preserved. He was treated with medical management with morphine sulfate. He denies any history of orthopnea or PND. He states he does have chronic left shoulder/left upper extremity discomfort/paresthesias related to cervical disc disease. He states he underwent an exercise tolerance test at [facility] in the late summer/early fall 2017 in preparation for C-spine related surgery. He states this was negative as he did not require further cardiac evaluation or care. [] Past Medical History Allergies/Adverse Reactions: Allergies Penicillins Allergy (Verified 08/13/18 05:13) Unknown Home Medications: Ambulatory Orders Medication Instructions Recorded NK 08/13/18 - *Family History Maternal History Items: - - no CAD Lives: Spouse/ Significant Other Smoking Status: Heavy Smoker (>10/day) Tobacco Use: Cigarettes Drugs: None Review of Systems - Review of Systems General: Denies: Fever, Night Sweats, Fatigue Cardiovascular: Reports: Chest Discomfort, Chest Discomfort at Rest, Shortness of Breath, Shortness of Breath at Rest, - - Diaphoresis. Denies: Orthopnea, PND, Peripheral Edema, Palpitations, Lightheadedness, Dizziness, Near Syncope, Syncope Respiratory: Reports: Cough, Shortness of Breath Gastrointestinal: Reports: Nausea. Denies: Hematemesis, Hematochezia, Melena Genitourinary: Denies: Dysuria, Hematuria Skin: Denies: Rash Subjectve: This is a thin 48-year-old white male who appears to be resting comfortably at the moment in no acute distress. Objective: Vital Signs Temp Pulse Resp BP Pulse Ox 98.4 F 76 17 125/74 H 97 08/13/18 13:57 08/13/18 13:57 08/13/18 13:57 08/13/18 13:57 08/13/18 13:57 Oxygen Flow Rate (L/min) 2 Oxygen Delivery Method Room Air Weight: 184 lb 15.485 oz Body Mass Index (BMI) 23.7 Intake and Output for Last 24 Hours 08/11/18 08/12/18 08/13/18 23:59 23:59 23:59 Intake Total 100 / 100 Balance 100 / 100 General: Awake, Alert, Oriented x 3, Cooperative, No Acute Distress HEENT: Atraumatic, Normocephalic, PERRL, EOMI Oral: Moist Mucosa Neck: Supple, Good ROM, No JVD Lungs: Clear to auscultation Cardiovascular: Regular Rhythm, Normal S1, Normal S2 Vascular: No Carotid Bruits Abdomen: Bowel Sounds Present, Soft, Non Tender Extremities: No edema Psych/Mental Status: Appropriate 08/13/18 05:19: WBC 9.3, RBC 4.43 L, Hgb 13.5, Hct 40.8, MCV 92.1, MCH 30.5, MCHC 33.1, RDW 12.7, RDW Differential 41.6, Plt Count 244, MPV 11.2, Immature Gran % (Auto) 0.100, Neut % (Auto) 62.8, Lymph % (Auto) 28.1, [place] % (Auto) 6.4, Eos % (Auto) 2.4, Baso % (Auto) 0.2, Absolute Neuts (auto) 5.8, Total Counted Not Reportable 08/13/18 05:19: Sodium 143, Potassium 4.4, Chloride 111 H, Carbon Dioxide 26.0, Anion Gap 6, BUN 14, Creatinine 0.98, Est GFR (MDRD) Af Amer 106, Est GFR (MDRD) Non-Af 88, BUN/Creatinine Ratio 14.4, Glucose 106, Calcium 8.4 L, Total Bilirubin 0.30, Direct Bilirubin 0.10, Troponin I < 0.015 08/13/18 05:19: D-Dimer Quant (PE/DVT) < 0.27 L 08/13/18 06:05: Lactic Acid 1.1 08/13/18 08:36: Troponin I < 0.015 08/13/18 11:10: Troponin I < 0.015 Rhythm: Sinus rhythm EKG: Sinus rhythm; no acute ECG changes ECHO: Interpretation Summary Left ventricular systolic function is normal. The estimated ejection fraction is 65 %. Probable chiari network. Trivial mitral valve insufficiency. Trivial tricuspid valve insufficiency. No evidence for diastolic dysfunction. Stress Test: Unavailable for review CXR: Please see official report Chest CT Scan: Please see official report Assessment/Plan 1. Chest pain The patient experienced nonexertional/nocturnal chest pain. The etiology is unclear at this time. Initially there were concerns of an acute coronary syndrome with an acute ST segment elevation TN based upon his EMS ECG. However based upon repeat ECGs there appeared to be a question as to whether that was accurate versus artifact. His [facility] ECG demonstrated no acute changes. He is undergone evaluation with cardiac enzymes which have been negative. He is undergone evaluation with a transthoracic echocardiogram which did not appear to suggest any left ventricular regional wall motion abnormalities or diminished LV systolic function. He has had various radiologic studies to evaluate his pulmonary process for any evidence of recurrent spontaneous pneumothorax or great vessel disease. The studies have been negative for any acute related issues. It is unclear at this time where the patient's chest discomfort was related to a cardiovascular issue versus noncardiac issue. From a cardiac standpoint there may be some concerns based upon his discomfort and his initial EMS ECG as to whether or not another etiology could include an acute coronary condition which was aborted or a coronary artery vasospasm with subsequent spontaneous release and resolution. At the present time from a cardiac standpoint he is continuing to be monitored. He will have follow-up ECGs. However, based upon his clinical scenario it would not be unreasonable to consider further definitive evaluation of his coronary anatomy with a diagnostic cardiac catheterization. The procedure and risks were discussed with him. He was agreeable to this approach. In the interim he will be treated medically with aspirin and antiplatelet therapy as deemed appropriate. His lipid labs have been requested to assist with his cardiovascular risk factor evaluation. 2. Abnormal ECG Again there is concern of his initial ECG by the EMS and his subsequent ECG by EMS prior to arrival at [facility]. It is unclear as to whether this is artifact versus does represent an underlying acute coronary condition which was aborted or potentially coronary artery vasospasm. Thus at the present time he will continue to be monitored. He will be treated medically as noted above. He has been recommended for further evaluation with diagnostic cardiac catheterization. He was agreeable to this approach. Comment: The patient's case was discussed with the patient and his female significant other. This note was generated with [email or web address] software. It may contain incorrect words, spelling, and punctuation that were not noted in checking the note before signing.
[2018-08-13] MEDS: 0.9% Normal Saline 1,000 ML 75 ML IV (18:26)
[2018-08-13] MEDS: TICAGRELOR 90 MG TABLET 180 MG PO (18:26)
[2018-08-13] MEDS: 0.9% NaCl Peripheral Flush Adult/Peds IV (23:50)
[2018-08-14] VITALS (13 sets, daily range): BP systolic 108–137; BP diastolic 69–91; PULSE 68–91; RESP 16–18; TEMP 36.6–37.2; O2SAT 96–98
--- NOTE | 2018-08-14 00:40 | NURSING ---
This RN took report and took over care for patient.
[2018-08-14] MEDS: oxyCODONE 5 MG Tablet PO ×2 (03:39→08:55)
[2018-08-14 05:17] LABS: Absolute Lymphocyte Count 1.59 X10^3/ul (0.83-4.51); Basophil# 0.03 X10^3/uL; Basophil% 0.3 % (0-1); Eosinophil# 0.11 X10^3/uL; Eosinophils% 1.1 % (0-5); Hematocrit 40.2 % (40-54); Hemoglobin 13.3 g/dl (13.0-16.5); Lymphocyte # 1.59 X10^3/ul (4.0); Lymphocyte % 15.3 % (19-41); Mean Corp Hgb Conc 33.1 g/gl (32-36); Mean Corpuscular Hgb 30.2 pg (27.0-32.0); Mean Corpuscular Volume 91.4 fL (80-94); Mean Platelet Vol. 11.2 fl (6.2-12.0); Monocyte# 0.67 X10^3/uL; Monocyte% 6.4 % (0-10); Neutrophil # 7.98 X10^3/uL (2.7-7.7); Neutrophil % 76.7 % (47-70); Platelet Count 227 K/mm3 (150-450); RBC Distribution Width CV 12.6 % (11.6-14.6); RBC Distribution Width SD 41.2 fl (35.1-43.9); White Blood Count 10.4 K/mm3 (4.4-11.0)
[2018-08-14 05:27] LABS: Prothrombin Time (Protime)PT. 13.2 SECONDS (11.7-14.9)
[2018-08-14 05:28] LABS: Partial Thromboplast Time 30.9 Seconds (24.1-36.2)
[2018-08-14 05:32] LABS: POSITIVE COUNT NO; POSITIVE DIFFERENTIAL NO; POSITIVE MORPHOLOGY NO
[2018-08-14 05:37] LABS: Anion Gap 7 (5-15); BUN 10 mg/dL (7-18); BUN/Creat Ratio 12.8 RATIO (10-20); Calcium,Total 8.4 mg/dL (8.5-10.1); Chloride 109 mmol/L (98-107); Cholesterol 149 mg/dL (200); Creatinine, Serum 0.78 mg/dL (0.70-1.30); EST Glomerular Filtration Rate 113 mL/min (>60); Est Glom Filt Rate - Afr Amer 137 mL/min (>60); Estimated Creatinine Clearance 136.12 ml/min; Glucose 106 mg/dL (74-106); High Density Lipoprotein 47 mg/dL; Potassium 3.9 mmol/L (3.5-5.1); Sodium Level 141 mmol/L (136-145); Triglycerides 109 mg/dL; Very Low Density Lipoprotein 22 mg/dL (5-40)
[2018-08-14] MEDS: Aspirin E.C. 81 MG Tablet PO (05:49)
[2018-08-14] MEDS: TICAGRELOR 90 MG TABLET PO (05:49)
[2018-08-14] MEDS: 0.9% Normal Saline 1,000 ML 75 ML IV (05:49)
--- NOTE | 2018-08-14 05:55 | EKG12_ITS ---
Test Reason : AM EKG Blood Pressure : / mmHG Vent. Rate : 081 BPM Atrial Rate : 081 BPM P-R Int : 156 ms QRS Dur : 092 ms QT Int : 366 ms P-R-T Axes : 066 070 063 degrees QTc Int : 425 ms Normal sinus rhythm Pericarditis Abnormal ECG When compared with ECG of 13-AUG-2018 08:27, MANUAL COMPARISON REQUIRED, DATA IS UNCONFIRMED Confirmed by JEAN CATALAN ([id number]), purchasing expeditor MIGUE SCOTT ([id number] on 08/19/2018 2:21:06 PM Referred By: POP Confirmed By:ELKE CATALAN
--- NOTE | 2018-08-14 07:11 | NURSING ---
REPORT CALLED DOWN TO SPOT FACER. SPOKE WITH NEETU CRUZ. PATIENT OKAY TO GO DOWN.
--- NOTE | 2018-08-14 08:16 | PCM.PN.CARD ---
Subjectve: The patient has denied any recurrent symptoms similar to his original presentation. He is now s/p diagnostic cardiac cath with overall preserved LV systolic function and angiographically appearing normal coronary arteries. Objective: Vital Signs Temp Pulse Resp BP Pulse Ox 98.3 F 86 16 128/79 H 97 08/14/18 05:46 08/14/18 07:19 08/14/18 05:46 08/14/18 05:46 08/14/18 05:46 Oxygen Flow Rate (L/min) 2 Oxygen Delivery Method Room Air Weight: 184 lb 15.485 oz Body Mass Index (BMI) 23.7 Intake and Output for Last 24 Hours 08/12/18 08/13/18 08/14/18 23:59 23:59 23:59 Intake Total 1481 / 1481 423 / 423 Balance 1481 / 1481 423 / 423 General: Awake, Alert, Oriented x 3, Cooperative, No Acute Distress HEENT: Atraumatic, Normocephalic, PERRL, EOMI, Sclera Non Icteric Oral: Moist Mucosa Neck: Supple, Good ROM, No JVD Lungs: Clear to auscultation Cardiovascular: Regular Rhythm, Normal S1, Normal S2 Vascular: No Carotid Bruits, Normal Femoral Pulses Abdomen: Bowel Sounds Present, Soft, Non Tender Extremities: No Cyanosis, No Clubbing, No edema Psych/Mental Status: Appropriate 08/13/18 08:36: Troponin I < 0.015 08/13/18 11:10: Troponin I < 0.015 08/14/18 05:05: Sodium 141, Potassium 3.9, Chloride 109 H, Carbon Dioxide 25.0, Anion Gap 7, BUN 10, Creatinine 0.78, Est GFR (MDRD) Af Amer 137, Est GFR (MDRD) Non-Af 113, BUN/Creatinine Ratio 12.8, Glucose 106, Calcium 8.4 L, Triglycerides 109, Cholesterol 149, LDL Cholesterol 80, VLDL Cholesterol 22, HDL Cholesterol 47 08/14/18 05:05: WBC 10.4, RBC 4.40 L, Hgb 13.3, Hct 40.2, MCV 91.4, MCH 30.2, MCHC 33.1, RDW 12.6, RDW Differential 41.2, Plt Count 227, MPV 11.2, Immature Gran % (Auto) 0.200, Neut % (Auto) 76.7 H, Lymph % (Auto) 15.3 L, Sebastian % (Auto) 6.4, Eos % (Auto) 1.1, Baso % (Auto) 0.3, Absolute Neuts (auto) 8.0 H, Total Counted Not Reportable 08/14/18 05:05: PT 13.2, INR 1.0, APTT 30.9 Rhythm: sinus rhythm EKG: sinus rhythm; no acute ECG changes Cardiac Cath: please see official report Medical Necessity - Tobacco Use Smoking Status: Heavy Smoker (>10/day) Tobacco Use: Cigarettes Assessment/Plan 1. Chest pain The patient experienced nonexertional/nocturnal chest pain. The etiology is unclear at this time. Initially there were concerns of an acute coronary syndrome with an acute ST segment elevation NV based upon his EMS ECG. However based upon repeat ECGs there appeared to be a question as to whether that was accurate versus artifact. His [facility] ECG demonstrated no acute changes. He is undergone evaluation with cardiac enzymes which have been negative. He is undergone evaluation with a transthoracic echocardiogram which did not appear to suggest any left ventricular regional wall motion abnormalities or diminished LV systolic function. He has had various radiologic studies to evaluate his pulmonary process for any evidence of recurrent spontaneous pneumothorax or great vessel disease. The studies have been negative for any acute related issues. He has now undergone evaluation with diagnostic cardiac cath. His LV systolic function appeared preserved and his coronary arteries appeared angiographically normal. Thus, there is a concern that his chest pain was non CAD / non cardiac related and his EMS ECG was related to somatic / motion artifact. He does not appear to have findings c/w a previous ACS with thrombosis and spontaneous lysis. It is not definitive that he had coronary artery vasospasm leading to his symptoms and initial ECG findings, however, it may not be unreasonable to consider conservative medical management for such with a calcium channel antagonist while he undergoes further non cardiac evaluation of his symptoms. 2. Abnormal ECG Again there is concern of his initial ECG by the EMS and his subsequent ECG by EMS prior to arrival at [facility]. He has undergone evaluation as noted above. He will continue cardiovascular risk factor evaluation / care as deemed appropriate. He should continue non cardiac evaluation of his symptoms as well. This note was generated with [employer] software. It may contain incorrect words, spelling, and punctuation that were not noted in checking the note before signing.
--- NOTE | 2018-08-14 08:23 | PN.CARD_ITS ---
Subjectve: The patient has denied any recurrent symptoms similar to his original presentation. He is now s/p diagnostic cardiac cath with overall preserved LV sy stolic function and angiographically appearing normal coronary arteries. Objective: Vital Signs Temp Pulse Resp BP Pulse Ox 98.3 F 86 16 128/79 H 97 08/14/18 05:46 08/14/18 07:19 08/14/18 05:46 08/14/18 05:46 08/14/18 05:46 Oxygen Flow Rate (L/min) 2 Oxygen Delivery Method Room Air Weight: 184 lb 15.485 oz Body Mass Index (BMI) 23.7 Intake and Output for Last 24 Hours 08/12/18 08/13/18 08/14/18 23:59 23:59 23:59 Intake Total 1481 / 1481 423 / 423 Balance 1481 / 1481 423 / 423 General: Awake, Alert, Oriented x 3, Cooperative, No Acute Distress HEENT: Atraumatic, Normocephalic, PERRL, EOMI, Sclera Non Icteric Oral: Moist Mucosa Neck: Supple, Good ROM, No JVD Lungs: Clear to auscultation Cardiovascular: Regular Rhythm, Normal S1, Normal S2 Vascular: No Carotid Bruits, Normal Femoral Pulses Abdomen: Bowel Sounds Present, Soft, Non Tender Extremities: No Cyanosis, No Clubbing, No edema Psych/Mental Status: Appropriate 08/13/18 08:36: Troponin I < 0.015 08/13/18 11:10: Troponin I < 0.015 08/14/18 05:05: Sodium 141, Potassium 3.9, Chloride 109 H, Carbon Dioxide 25.0, Anion Gap 7, BUN 10, Creatinine 0.78, Est GFR (MDRD) Af Amer 137, Est GFR (MDRD) Non-Af 113, BUN/Creatinine Ratio 12.8, Glucose 106, Calcium 8.4 L, Triglycerides 109, Cholesterol 149, LDL Cholesterol 80, VLDL Cholesterol 22, HDL Cholesterol 47 08/14/18 05:05: WBC 10.4, RBC 4.40 L, Hgb 13.3, Hct 40.2, MCV 91.4, MCH 30.2, MCHC 33.1, RDW 12.6, RDW Differential 41.2, Plt Count 227, MPV 11.2, Immature Gran % (Auto) 0.200, Neut % (Auto) 76.7 H, Lymph % (Auto) 15.3 L, [place] % (Auto) 6.4, Eos % (Auto) 1.1, Baso % (Auto) 0.3, Absolute Neuts (auto) 8.0 H, Total Counted Not Reportable 08/14/18 05:05: PT 13.2, INR 1.0, APTT 30.9 Rhythm: sinus rhythm EKG: sinus rhythm; no acute ECG changes Cardiac Cath: please see official report Medical Necessity - Tobacco Use Smoking Status: Heavy Smoker (>10/day) Tobacco Use: Cigarettes Assessment/Plan 1. Chest pain The patient experienced nonexertional/nocturnal chest pain. The etiology is unclear at this time. Initially there were concerns of an acute coronary syndrome with an acute ST segment elevation [place] based upon his EMS ECG. However based upon repeat ECGs there appeared to be a question as to whether that was accurate versus artifact. His [facility] ECG demonstrated no acute changes. He is undergone evaluation with cardiac enzymes which have been negative. He is undergone evaluation with a transthoracic echocardiogram which did not appear to suggest any left ventricular regional wall motion abnormalities or diminished LV systolic function. He has had various radiologic studies to evaluate his pulmonary process for any evidence of recurrent spontaneous pneumothorax or great vessel disease. The studies have been negative for any acute related issues. He has now undergone evaluation with diagnostic cardiac cath. His LV systolic function appeared preserved and his coronary arteries appeared angiographically normal. Thus, there is a concern that his chest pain was non CAD / non cardiac related and his EMS ECG was related to somatic / motion artifact. He does not appear to have findings c/w a previous ACS with thrombosis and spontaneous lysis. It is not definitive that he had coronary artery vasospasm leading to his symptoms and initial ECG findings, however, it may not be unreasonable to consider conservative medical management for such with a calcium channel antagonist while he undergoes further non cardiac evaluation of his symptoms. 2. Abnormal ECG Again there is concern of his initial ECG by the EMS and his subsequent ECG by EMS prior to arrival at [facility]. He has undergone evaluation as noted above. He will continue cardiovascular risk factor evaluation / care as deemed appropriate. He should continue non cardiac evaluation of his symptoms as well. This note was generated with [employer] dictation software. It may contain incorrect words, spelling, and punctuation that were not noted in checking the note before signing.
--- NOTE | 2018-08-14 08:34 | CL.D_ITS ---
Patient Name: FRANCISCO JAVIER NORMAN Study Date: 08/14/2018 Performing: Micky Cantu MD Ht: 74 inches 188 cm : 1970 Wt: 185.4 lbs 84 kg Age: 48 Gender: male BSA: 2.1 PROCEDURE(S) PERFORMED HR56-SCI/COR/LV CLINICAL PROFILE AND INDICATIONS Indications: Suspected CAD Heart Failure: None Stress/Imaging Stress/Image Study Performed: No Angina Classification Anginal Classification w/in 2 Weeks: CCS IV CAD Presentations: Other: Chest Pain; Abnormal ECG CONCLUSIONS Elevated Left Ventricular End Diastolic Pressure Normal LV size, wall motion,and systolic function LVEF: by LV gram 55 % Normal coronary arteries RECOMMENDATIONS Risk factor modification Medical therapy DESCRIPTION OF PROCEDURE The patient arrived to the procedure lab. The risks and benefits of the procedure as well as a full d escription of our services here and current unavailability of surgical backup were fully explained to the patient and/or their significant other prior to the catheterization. The Timeout was completed, verifying the correct patient and procedure. The patient's procedural site was prepped and draped in the usual fashion. Local anesthetic was given subcutaneously to right groin region with Lidocaine 2%. Using a modified Seldinger technique, arterial access was obtained via the right femoral artery, a 4 Fr sheath was inserted Left Coronary Artery selective angiography was performed in multiple views us ing a 4 Fr. JL5 catheter. Right Coronary Artery selective angiography was then performed in multiple views using a 4 Fr. 3DRC catheter. Left Ventriculography was performed in WHITE projection using a 4 Fr . Pigtail catheter. LV to AO pullback pressures were then recorded.The arterial sheath was pulled and manual compression applied until hemostasis is achieved. CORONARY ANGIOGRAPHY DOMINANCE: Right Dominant LEFT HEART ASSESSMENT Left Ventricular Ejection Fraction: by LV Gram 55 % Normal LV wall motion Elevated Left Ventricular End Diastolic Pressure LVEDP: 20 mmHg LEFT MAIN: Angiographically normal LEFT ANTERIOR DECENDING ARTERY: Angiographically normal CIRCUMFLEX ARTERY: Angiographically normal RIGHT CORONARY ARTERY: Angiographically normal VALVE FINDINGS: Normal Aortic Valve function Normal Mitral Valve function AORTIC ROOT: Angiographically normal COMPLICATIONS No Complications PROCEDURE MEDICATIONS Versed 1 mg IV Oxygen: 2 L/min via nasal cannula SUMMARY OF HEMODYNAMIC DATA Time AIR REST ECG 07:32:40 AO 114/76 (94) SA 07:48:35 LV 114/6, 26 07:53:15 LV 133/1, 20 07:53:22 LV 128/0, 21 07:54:08 LVp 129/-1, 17 07:54:54 AOp 135/75 (101) 07:54:59 Signed By Micky Cantu MD On 08/14/2018 08:33:24 Micky Cantu MD
[2018-08-14] MEDS: amLODIPine 2.5 MG Tablet PO (08:55)
--- NOTE | 2018-08-14 09:07 | CASEMGMT ---
According to the [facility] website, the following are in-network tertiary facilities: [facility], [facility], [facility], [facility], [facility], and . Teri DE ANDA CM
--- NOTE | 2018-08-14 11:02 | DCINST_ITS ---
- Discharge Diagnoses Current Active Problems: Current Active and Chronic Problems (Last Updated 08/14/18 @ 09:44 by Taylor Hood) Chest pain (Acute) Abnormal ECG (Acute) You will use the following diet at home:: No restrictions Your food should be the consistency of: Regular Your liquids should be the consistency of: Regular/Thin Discharge Activity: Return to Normal Activity Call your doctor if you observe: Shortness of breath, Chest pain Instructions: ED Chest Pain NonCardiac Allergies/Adverse Reactions: Allergies Penicillins Allergy (Verified 08/13/18 05:13) Unknown Medications to take at Discharge Amlodipine [Norvasc] 2.5 mg PO DAILY #30 tablet 08/14/18 The following prescriptions were given: Amlodipine [Norvasc] 2.5 mg PO DAILY #30 tablet Primary Care Physician: Care Physician,No Primary [Primary Care Provider] - Test Results: Test results from this visit will be discussed in further detail at your follow- up appointment, if applicable. Please Follow Up With: Stefany Dow MD - Primary care physician When: 2-4 weeks, call for appointment Please Follow Up With: Prabhjot De La Paz MD - Pulmonology When: 4-6 weeks, call for appointment Please Follow Up With: Micky Cantu MD - Cardiology When: 1-2 months, call for appointment Proposed Discharge Date: 08/14/18
--- NOTE | 2018-08-14 11:02 | PCM.DC.SUM ---
Discharge Date and Diagnosis - Problem List Patient Problems: Active and Suspected Problems (Last Updated 08/14/18 @ 09:44 by Taylor Hood) Chest pain (Acute) Abnormal ECG (Acute) Date of Admission: 08/13/18 Date of Discharge: 08/14/18 - Primary Discharge Diagnosis Active and Suspected Problems (Last Updated 08/14/18 @ 09:44 by Taylor Hood) Chest pain (Acute) Abnormal ECG (Acute) Hospital Course and Treatment Imaging Results: Clinical Impression(s) from Imaging Studies Chest X-Ray 08/13/18 05:10 IMPRESSION: No acute cardiopulmonary disease. at 0535 Reported and signed by: Stuart Hamilton MD Electronically Signed: Stuart Hamilton, at 5:34 EDT Tel , Service support , Abdomen/Pelvis CT 08/13/18 05:30 IMPRESSION: 1. No acute abdominal disease identified. 2. Scattered small hepatic lesions, unchanged, compatible with cysts. 3. Old granulomatous disease. Individualized dose optimization techniques were used for this CT. at 0602 Reported and signed by: Stuart Hamilton MD Electronically Signed: Stuart Hamilton, at 6:01 EDT Tel , Service support , Chest CT 08/13/18 08:10 IMPRESSION: Stable fibrotic changes at the lung apices with subpleural blebs. Findings suggestive of a bibasilar scarring with superimposed mild atelectasis. Small left pleural effusion. Electronically Signed: Denys Pitts, at 9:11 EDT , Service support , Procedures: 2-D Echocardiogram, Cardiac catheterization Summary of Care Provided: The patient is a 48 year old M presents with acute onset of chest pain. Initial EKG was concerning for inferior ST elevation myocardial infarction but the subsequent EKGs showed resolution of those changes. Troponins were negative. Patient was asked about drug history and he adamantly denied that, however, drug screen came back positive for opiates, amphetamines and marijuana. Patient later endorsed that he did smoke marijuana but denies any other drugs. Though for the opiates, patient did receive morphine prior to that drug screen being performed. Patient was advised about the risks of vasospasm associated with amphetamines and advised that if he is using substances such as that to completely stop. Patient underwent a CAT scan because his x-ray did appear to be abnormal and did show some blebs in the periphery. Patient does have a history of a spontaneous pneumothorax and is my feeling this is probably related with a rupture of 1 of those blebs that happened previously. I have advised the patient to stop smoking and also to follow-up with pulmonology to be further evaluated for COPD and to have possible other evaluation for COPD, such as looking for other genetic causes, such as alpha-1 antitrypsin deficiency. Given the potential for vasospasm, patient has been started on amlodipine and I will continue that for the time being. Patient instructed follow-up cardiology next 1 to 2 months. [] Patient Problems: Active and Suspected Problems (Last Updated 08/14/18 @ 09:44 by Taylor Hood) Chest pain (Acute) Abnormal ECG (Acute) - Physical Exam General: Alert, No apparent distress HEENT: Atraumatic, Normocephalic Oral: Moist Mucosa, No Gingival or Mucosal Lesions/ Ulcerations Neck: No Nodes, Thyroid Normal Size and Texture Lungs: Clear to auscultation, Normal air movement, No rhonchi, No wheeze Cardiovascular: Regular rate, Regular Rhythm, Normal S1, Normal S2 Abdomen: Bowel Sounds Present, Soft, Non Tender, Non-Distended Vital Signs Temp Pulse Resp BP Pulse Ox 37.1 C 76 18 118/71 96 08/14/18 10:05 08/14/18 10:08/14/18 10:08/14/18 10:08/14/18 10:05 Oxygen Flow Rate (L/min) 2 Oxygen Delivery Method Room Air Weight: 83.9 kg Body Mass Index (BMI) 23.7 Intake and Output for Last 24 Hours 08/12/18 08/13/18 08/14/18 23:59 23:59 23:59 Intake Total 1481 / 1481 423 / 423 Balance 1481 / 1481 423 / 423 Laboratory Tests Past 24 Hrs 08/13/18 08/13/18 08/13/18 08:36 11:10 12:45 WBC RBC Hgb Hct MCV MCH MCHC RDW RDW Differential Plt Count MPV Immature Gran % (Auto) Neut % (Auto) Lymph % (Auto) [place]pher[place] % (Auto) Eos % (Auto) Baso % (Auto) Absolute Neuts (auto) Absolute Lymphs (auto) Total Counted PT INR APTT Sodium Potassium Chloride Carbon Dioxide Anion Gap BUN Creatinine Estim Creat Clear Calc Est GFR (MDRD) Af Amer Est GFR (MDRD) Non-Af BUN/Creatinine Ratio Glucose Calcium Troponin I < 0.015 < 0.015 Triglycerides Cholesterol LDL Cholesterol VLDL Cholesterol HDL Cholesterol Urine Opiates Screen POSITIVE H Urine Methadone Screen NEGATIVE Ur Barbiturates Screen NEGATIVE Ur Phencyclidine Scrn NEGATIVE Ur Amphetamines Screen POSITIVE H U Methamphetamin-MDMA NEGATIVE U Benzodiazepines Scrn NEGATIVE Urine Cocaine Screen NEGATIVE U Cannabinoids Screen POSITIVE H Ur Drug Screen Comment 08/14/18 08/14/18 08/14/18 05:05 05:05 05:05 WBC 10.4 RBC 4.40 L Hgb 13.3 Hct 40.2 MCV 91.4 MCH 30.2 MCHC 33.1 RDW 12.6 RDW Differential 41.2 Plt Count 227 MPV 11.2 Immature Gran % (Auto) 0.200 Neut % (Auto) 76.7 H Lymph % (Auto) 15.3 L [place]pherson % (Auto) 6.4 Eos % (Auto) 1.1 Baso % (Auto) 0.3 Absolute Neuts (auto) 8.0 H Absolute Lymphs (auto) 1.59 Total Counted Not Reportable PT 13.2 INR 1.0 APTT 30.9 Sodium 141 Potassium 3.9 Chloride 109 H Carbon Dioxide 25.0 Anion Gap 7 BUN 10 Creatinine 0.78 Estim Creat Clear Calc 136.12 Est GFR (MDRD) Af Amer 137 Est GFR (MDRD) Non-Af 113 BUN/Creatinine Ratio 12.8 Glucose 106 Calcium 8.4 L Troponin I Triglycerides 109 Cholesterol 149 LDL Cholesterol 80 VLDL Cholesterol 22 HDL Cholesterol 47 Urine Opiates Screen Urine Methadone Screen Ur Barbiturates Screen Ur Phencyclidine Scrn Ur Amphetamines Screen U Methamphetamin-MDMA U Benzodiazepines Scrn Urine Cocaine Screen U Cannabinoids Screen Ur Drug Screen Comment Discharge Diet: No Restrictions Discharge Activity: Return to Normal Activity Call your doctor if you observe: Shortness of breath, Chest pain Home Medications: Medications to take at Discharge Amlodipine [Norvasc] 2.5 mg PO DAILY #30 tablet 08/14/18 Following Prescrptions Were Given to Patient: Amlodipine [Norvasc] 2.5 mg PO DAILY #30 tablet Primary Care Physician: Care Physician,No Primary [Primary Care Provider] - Please Follow Up With: Stefany Dow MD - Primary care physician When: 2-4 weeks, call for appointment Please Follow Up With: Prabhjot De La Paz MD - Pulmonology When: 4-6 weeks, call for appointment Please Follow Up With: Micky Cantu MD - Cardiology When: 1-2 months, call for appointment Patient Instructions: ED Chest Pain NonCardiac Disposition: Home Minutes spent on discharge:: 26 Patient Condition:: Good Medical Necessity - Tobacco Use Smoking Status: Heavy Smoker (>10/day) Tobacco Use: Cigarettes Meaningful Use Info Meaningful Use Diagnoses (Choose all that apply): None applicable Code Visit OBSV E&M: 18221 Observation care discharge
--- NOTE | 2018-08-14 11:06 | DS.PCM_ITS ---
Discharge Date and Diagnosis - Problem List Patient Problems: Active and Suspected Problems (Last Updated 08/14/18 @ 09:44 by Taylor Hood) Chest pain (Acute) Abnormal ECG (Acute) Date of Admission: 08/13/18 Date of Discharge: 08/14/18 - Primary Discharge Diagnosis Active and Suspected Problems (Last Updated 08/14/18 @ 09:44 by Taylor Hood) Chest pain (Acute) Abnormal ECG (Acute) Hospital Course and Treatment Imaging Results: Clinical Impression(s) from Imaging Studies Chest X-Ray 08/13/18 05:10 IMPRESSION: No acute cardiopulmonary disease. at 0535 Reported and signed by: Stuart Hamilton MD Electronically Signed: Stuart Hamilton, at 5:34 EDT Tel , Service support , Abdomen/Pelvis CT 08/13/18 05:30 IMPRESSION: 1. No acute abdominal disease identified. 2. Scattered small hepatic lesions, unchanged, compatible with cysts. 3. Old granulomatous disease. Individualized dose optimization techniques were used for this CT. at 0602 Reported and signed by: Stuart Hamilton MD Electronically Signed: Stuart Hamilton, at 6:01 EDT Tel , Service support , Chest CT 08/13/18 08:10 IMPRESSION: Stable fibrotic changes at the lung apices with subpleural blebs. Findings suggestive of a bibasilar scarring with superimposed mild atelectasis. Small left pleural effusion. Electronically Signed: Denys Pitts, at 9:11 EDT , Service support , Procedures: 2-D Echocardiogram, Cardiac catheterization Summary of Care Provided: The patient is a 48 year old M presents with acute onset of chest pain. Initial EKG was concerning for inferior ST elevation myocardial infarction but the subsequent EKGs showed resolution of those changes. Troponins were negative. Patient was asked about drug history and he adamantly denied that, however, drug screen came back positive for opiates, amphetamines and marijuana. Patient later endorsed that he did smoke marijuana but denies any other drugs. Though for the opiates, patient did receive morphine prior to that drug screen being performed. Patient was advised about the risks of vasospasm associated with amphetamines and advised that if he is using substances such as that to completely stop. Patient underwent a CAT scan because his x-ray did appear to be abnormal and did show some blebs in the periphery. Patient does have a history of a spontaneous pneumothorax and is my feeling this is probably related with a rupture of 1 of those blebs that happened previously. I have advised the patient to stop smoking and also to follow-up with pulmonology to be further aiyana luated for COPD and to have possible other evaluation for COPD, such as looking for other genetic causes, such as alpha-1 antitrypsin deficiency. Given the potential for vasospasm, patient has been started on amlodipine and I will continue that for the time being. Patient instructed follow-up cardiology next 1 to 2 months. [] Patient Problems: Active and Suspected Problems (Last Updated 08/14/18 @ 09:44 by Taylor Hood) Chest pain (Acute) Abnormal ECG (Acute) - Physical Exam General: Alert, No apparent distress HEENT: Atraumatic, Normocephalic Oral: Moist Mucosa, No Gingival or Mucosal Lesions/ Ulcerations Neck: No Nodes, Thyroid Normal Size and Texture Lungs: Clear to auscultation, Normal air movement, No rhonchi, No wheeze Cardiovascular: Regular rate, Regular Rhythm, Normal S1, Normal S2 Abdomen: Bowel Sounds Present, Soft, Non Tender, Non-Distended Vital Signs Temp Pulse Resp BP Pulse Ox 37.1 C 76 18 118/71 96 08/14/18 10:08/14/18 10:08/14/18 10:08/14/18 10:08/14/18 10:05 Oxygen Flow Rate (L/min) 2 Oxygen Delivery Method Room Air Weight: 83.9 kg Body Mass Index (BMI) 23.7 Intake and Output for Last 24 Hours 08/12/18 08/13/18 08/14/18 23:59 23:59 23:59 Intake Total 1481 / 1481 423 / 423 Balance 1481 / 1481 423 / 423 Laboratory Tests Past 24 Hrs 08/13/18 08/13/18 08/13/18 08:36 11:10 12:45 WBC RBC Hgb Hct MCV MCH MCHC RDW RDW Differential Plt Count MPV Immature Gran % (Auto) Neut % (Auto) Lymph % (Auto) [place] % (Auto) Eos % (Auto) Baso % (Auto) Absolute Neuts (auto) Absolute Lymphs (auto) Total Counted PT INR APTT Sodium Potassium Chloride Carbon Dioxide Anion Gap BUN Creatinine Estim Creat Clear Calc Est GFR (MDRD) Af Amer Est GFR (MDRD) Non-Af BUN/Creatinine Ratio Glucose Calcium Troponin I < 0.015 < 0.015 Triglycerides Cholesterol LDL Cholesterol VLDL Cholesterol HDL Cholesterol Urine Opiates Screen POSITIVE H Urine Methadone Screen NEGATIVE Ur Barbiturates Screen NEGATIVE Ur Phencyclidine Scrn NEGATIVE Ur Amphetamines Screen POSITIVE H U Methamphetamin-MDMA NEGATIVE U Benzodiazepines Scrn NEGATIVE Urine Cocaine Screen NEGATIVE U Cannabinoids Screen POSITIVE H Ur Drug Screen Comment 08/14/18 08/14/18 08/14/18 05:05 05:05 05:05 WBC 10.4 RBC 4.40 L Hgb 13.3 Hct 40.2 MCV 91.4 MCH 30.2 MCHC 33.1 RDW 12.6 RDW Differential 41.2 Plt Count 227 MPV 11.2 Immature Gran % (Auto) 0.200 Neut % (Auto) 76.7 H Lymph % (Auto) 15.[address] % (Auto) 6.4 Eos % (Auto) 1.1 Baso % (Auto) 0.3 Absolute Neuts (auto) 8.0 H Absolute Lymphs (auto) 1.59 Total Counted Not Reportable PT 13.2 INR 1.0 APTT 30.9 Sodium 141 Potassium 3.9 Chloride 109 H Carbon Dioxide 25.0 Anion Gap 7 BUN 10 Creatinine 0.78 Estim Creat Clear Calc 136.12 Est GFR (MDRD) Af Amer 137 Est GFR (MDRD) Non-Af 113 BUN/Creatinine Ratio 12.8 Glucose 106 Calcium 8.4 L Troponin I Triglycerides 109 Cholesterol 149 LDL Cholesterol 80 VLDL Cholesterol 22 HDL Cholesterol 47 Urine Opiates Screen Urine Methadone Screen Ur Barbiturates Screen Ur Phencyclidine Scrn Ur Amphetamines Screen U Methamphetamin-MDMA U Benzodiazepines Scrn Urine Cocaine Screen U Cannabinoids Screen Ur Drug Screen Comment Discharge Diet: No Restrictions Discharge Activity: Return to Normal Activity Call your doctor if you observe: Shortness of breath, Chest pain Home Medications: Medications to take at Discharge Amlodipine [Norvasc] 2.5 mg PO DAILY #30 tablet 08/14/18 Following Prescrptions Were Given to Patient: Amlodipine [Norvasc] 2.5 mg PO DAILY #30 tablet Primary Care Physician: Care Physician,No Primary [Primary Care Provider] - Please Follow Up With: Stefany Dow MD - Primary care physician When: 2-4 weeks, call for appointment Please Follow Up With: Prabhjot De La Paz MD - Pulmonology When: 4-6 weeks, call for appointment Please Follow Up With: Micky Cantu MD - Cardiology When: 1-2 months, call for appointment Patient Instructions: ED Chest Pain NonCardiac Disposition: Home Minutes spent on discharge:: 26 Patient Condition:: Good Medical Necessity - Tobacco Use Smoking Status: Heavy Smoker (>10/day) Tobacco Use: Cigarettes Meaningful Use Info Meaningful Use Diagnoses (Choose all that apply): None applicable Code Visit OBSV E&M: 71347 Observation care discharge
== END 2018-08-14 11:02 | disposition home or self-care (01) ==
LOC: ED 05:07 → PCU 07:29
PROVIDERS: Internal Medicine Cardiovascular Disease; Emergency Provider Emergency Medicine
DX: R07.89 Other chest pain (principal); R06.02 Shortness of breath; R11.0 Nausea; I08.1 Rheumatic disorders of both mitral and tricuspid valves; R94.31 Abnormal electrocardiogram [ECG] [EKG]; F17.210 Nicotine dependence, cigarettes, uncomplicated; R07.81 Pleurodynia
CPT/HCPCS: 36415; 71045; 71260; 74176; 80048; 80061; 80076; 80307; 83605; 83690; 84484; 85025; 85379; 85610; 85730; 93005; 93306; 93458; 96361; 96374; 96375; 96376; 99152; 99218; 99285; 99406; J7030; Q9967; A4216; C1769; G0378; J2405

== ENCOUNTER 2023-08-02 14:01 | Emergency (ER) | payer MEDICAID, SELFPAY ==
[2023-08-02 14:02] VITALS: BP 157/94; PULSE 95; RESP 16; TEMP 36.4; O2SAT 98; BMI 26.9
[2023-08-02 14:05] VITALS: BP 157/94; PULSE 95; RESP 16; TEMP 36.4; O2SAT 98
--- NOTE | 2023-08-02 14:21 | EX.ED.DYSGE1 ---
HPI History of Present Illness Chief Complaint: Cold Sx Detail of Chief Complaint: Fever and congestion Informant: patient Narrative Narrative: Patient presents due to concern for COVID. His girlfriend son was diagnosed with COVID earlier this week. He woke this morning with a fever of 103 with cough and congestion. He has some slight chest tightness. Does not particularly feel short of breath. PFSH PFS Medical History (Updated 08/02/23 @ 16:[address] Lynne Min MD) Hx of gastroesophageal reflux (GERD) Spontaneous pneumothorax Status post left heart catheterization (LHC) (~08/14/18) Home Medications omeprazole 20 mg capsule,delayed release 20 mg PO DAILY 08/02/23 [History Last Taken Unknown] Allergy/AdvReac Type Severity Reaction Status Date / Time Penicillins Allergy Unknown Verified 08/02/23 14:06 acetaminophen [From Vicodin] AdvReac Intermediate Hives Verified 08/02/23 14:06 hydrocodone [From Vicodin] AdvReac Intermediate Hives Verified 08/02/23 14:06 naproxen [From Aleve] AdvReac Intermediate Hives Verified 08/02/23 14:06 Surgical History H/O chest tube placement Social History Smoking Status: Former smoker ROS ROS ED Constitutional Constitutional ED: Reports fever(s); Denies chills Eyes Eyes: Denies change in vision or discharge from eye(s) ENT ENT ED: Reports other Details: Congestion ; Denies discharge from eye(s), rhinorrhea or sore throat Cardiovascular Cardiovascular: Reports other Details: Chest tightness ; Denies palpitations Respiratory/Chest Respiratory/Chest: Reports cough; Denies dyspnea Gastrointestinal Gastrointestinal: Denies abdominal pain, diarrhea, nausea or vomiting Genitourinary Genitourinary ED: Denies dysuria Musculoskeletal Musculoskeletal: Denies back pain or extremity pain Integumentary Denies Abrasions or rash Neurologic Neurologic: Denies headache(s) or weakness Psychiatric Psychiatric: Denies anxiety or depression Allergic/Immunologic Allergic/Immunologic ED: Denies lip swelling or urticaria EXAM Physical Exam Const Vital Signs: 08/02/23 14:02 08/02/23 14:05 08/02/23 15:00 Temperature 97.6 F L 97.6 F L Temperature Source Temporal Temporal Pulse Rate 95 95 Respiratory Rate 16 16 Respiratory Effort Normal Respiratory Pattern Normal Blood Pressure 157/94 H 157/94 H Blood Pressure Mean 115 115 Pulse Ox 98 98 Oxygen Delivery Method Room Air Room Air Positive well nourished and well developed General Appearance ED: well developed HEENT Reports moist mucous membranes Eyes EOMs intact bilaterally Neck no lymphadenopathy Chest Wall inspection of chest normal and palpation of chest normal Resp normal respiratory effort and clear to auscultation bilaterally Cardio regular rate and regular rhythm GI non-tender Palpation: soft Extremity normal to inspection Neuro oriented x3 and no sensory deficits noted Motor Exam: strength 5/5 throughout Psych mental status grossly normal Skin no rashes or lesions noted MDM MDM MDM Narrative Medical decision making narrative: Swab for COVID, influenza, and RSV will be obtained. Treatment and Re-Evaluation :: Swab for COVID, influenza, and RSV is negative at this time. Patient just developed his symptoms early this morning. Advised him that his viral count may still be too low to test positive. I encouraged him to retest in 2 days if he still has symptoms. I will write him a work note that he may return once free of fever for 24 hours. He will continue supportive care. Discharge Plan Triage Chief Complaint: Cold Sx ED Provider: Lynne Min Dx/Rx/DC Orders Clinical Impression: Viral URI Instructions: ED URI, Viral, No Abx (Adult) Prescriptions: No Action omeprazole 20 mg capsule,delayed release(DR/EC) 20 mg PO DAILY Stand Alone Forms: ED Work / School Excuse Primary Care Provider: Renu Reeves Referrals: Renu Reeves MD [Primary Care Provider] - 3-5 Days if not improving Care Physician,No Primary [Non-Staff] - Disposition Disposition: Home, Self Care
== END 2023-08-02 16:38 | disposition home or self-care (01) ==
PROVIDERS: Emergency Provider Emergency Medicine; PCP Student in an Organized Health Care Education/Training Program; Visit Provider Emergency Medicine
DX: J06.9 Acute upper respiratory infection, unspecified (principal); Z87.891 Personal history of nicotine dependence
CPT/HCPCS: 87631; 99282